=== PATIENT | male | born 1960 | race Caucasian/White ===

== ENCOUNTER 2019-01-17 14:57 | Inpatient (IN) | payer MEDICAID ==
[~2019-01-17] VITALS: Ht 174 cm; Wt 117.9 kg
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
--- NOTE | 2019-01-17 15:08 | NUR ---
DR. PIMENTEL AT BEDSIDE FOR EVAL.
[2019-01-17] MEDS ORDERED: NITROGLYCERIN PACKET 1 GM PACKET ONE (15:25)
--- NOTE | 2019-01-17 15:28 | NUR ---
DIRECTOR OF PUBLICATIONS AT BEDSIDE FOR CHEST XRAY.
[2019-01-17] MEDS ORDERED: NITROGLYCERIN PACKET 1 GM PACKET TD ONE (15:30)
[2019-01-17] MEDS ORDERED: ASPIRIN 325 MG TABLET PO ONE (15:30)
[2019-01-17 15:31] LABS: BASOPHILS # (AUTO) 0.1 /CMM (0.0-0.2); BASOPHILS % (AUTO) 1.3 % (0.0-2.0); EOSINOPHILS % (AUTO) 1.6 % (0.0-6.0); HEMATOCRIT 50 % (39-51); HEMOGLOBIN 15.2 g/dL (13.5-17.5); LYMPHOCYTES # (AUTO) 1.2 /CMM (0.8-4.8); LYMPHOCYTES % (AUTO) 17.1 % (20.0-44.0); MEAN CORPUSCULAR HGB CONC 31 g/dl (31.0-36.0); MEAN CORPUSCULAR VOLUME 92 fL (80-96); MONOCYTES # (AUTO) 0.6 /CMM (0.1-1.30); MONOCYTES % (AUTO) 8.6 % (2.0-12.0); NEUTROPHILS % (AUTO) 71.4 % (43.0-81.0); PLATELET COUNT (AUTO) 199 /CMM (150-450); RED BLOOD CELL COUNT(AUTO) 5.42 MIL/uL (4.5-6.0); WHITE BLOOD COUNT (AUTO) 6.9 K/uL (4.3-11.0)
[2019-01-17] MEDS ORDERED: ATOR40TA PO (15:39)
[2019-01-17] MEDS ORDERED: LISI-603 PO (15:39)
--- NOTE | 2019-01-17 15:41 | NUR ---
PSYCHOLOGY TECH/MED RECON INFORMATION OBTAINED FROM THE PATIENT. PER PATIENT HE DOES NOT TAKE ANY MEDICATION FOR DM.
--- NOTE | 2019-01-17 15:50 | NUR ---
CALLED NURSING SUP FOR BED.
[2019-01-17 16:03] LABS: ALANINE AMINOTRANSFERASE 22 U/L (12-78); ALBUMIN 3.3 g/dL (3.4-5.0); ALKALINE PHOSPHATASE 154 U/L (46-116); ASPARTATE AMINOTRANSFERASE 12 U/L (15-37); BILIRUBIN,DIRECT 0.2 mg/dL (0.0-0.2); CALCIUM, SERUM 8.5 mg/dL (8.5-10.1); CARBON DIOXIDE 21 mmol/L (21-32); CREATININE 2.5 mg/dL (0.6-1.3); POTASSIUM 5.4 mmol/L (3.5-5.1); TOTAL PROTEIN, SERUM 6.7 g/dL (6.4-8.2); UREA NITROGEN, BLOOD 34 mg/dL (7-18)
[2019-01-17 16:05] LABS: CHLORIDE 80 mmol/L (98-107); GLUCOSE 1217 mg/dL (74-106); SODIUM SERUM 113 mmol/L (136-145)
[2019-01-17] MEDS ORDERED: INSULIN REGULAR, HUMAN 100 UNIT/ML 10 ML VIAL ONE (16:13)
[2019-01-17] MEDS ORDERED: INSULIN REGULAR, HUMAN 100 UNIT in IV NS 0.9% 99 ML IV PRN ×4 (16:30→17:00)
[2019-01-17] MEDS ORDERED: INSULIN REGULAR, HUMAN 100 UNIT/ML 10 ML VIAL SQ ONE (16:30)
[2019-01-17] MEDS ORDERED: IV NS 0.9% 1,000 ML BAG IV ONE (16:30)
--- NOTE | 2019-01-17 16:30 | NUR ---
CHANGED TO ICU BED. CALLED NURSING SUP.
[2019-01-17] MEDS ORDERED: MAGNESIUM HYDROXIDE 30 ML UDC PO PRN (17:00)
[2019-01-17] MEDS ORDERED: ONDANSETRON HCL/PF 4 MG/2 ML VIAL IVP PRN (17:00)
[2019-01-17] MEDS ORDERED: HYDROCODONE/APAP 5/325MG 1 EACH TABLET PO PRN (17:00)
[2019-01-17] MEDS ORDERED: ZOLPIDEM TARTRATE 5 MG TABLET PO PRN (17:00)
[2019-01-17] MEDS ORDERED: Z GUARD REMEDY 2 OZ OINT TP PRN (17:00)
[2019-01-17] MEDS ORDERED: MAG HYDROX/AL HYDROX/SIMETH 30 ML UDC PO PRN (17:00)
[2019-01-17] MEDS ORDERED: ACETAMINOPHEN 325 MG TABLET PO PRN (17:00)
--- NOTE | 2019-01-17 17:08 | NUR ---
PATIENT SEEN BY DR. MAAN TORRES. REPORT GIVEN TO LAZ MARTIN FOR FLAQUITA.
[2019-01-17 17:13] LABS: PHOSPHORUS 3.6 mg/dL (2.5-4.9)
[2019-01-17 17:15] VITALS: BP 125/69
--- NOTE | 2019-01-17 17:15 | NUR ---
ICU/RN PT ADMITTED FROM ER.WITH VERY HIGH BLOOD SUGAR.PT IS ON INSULIN DRIP.PT IS AWAKE ,ALERT,ORIENTED.V/S STABLE,AFEBRILE.SR ON MONITOR.AMBULATING.USE URINAL .PERIFERAL IV.SKIN INTACT.NO PAIN REPORTED AT THIS TIME.CONTINUE MONITORING.
--- NOTE | 2019-01-17 17:21 | NUR ---
PATIENT TRANSFERRED TO ROOM 251-1 VIA ACLS PROTOCOL. PATIENT A/OX4, IN STABLE CONDITION. NO DISTRESS NOTED. NEEDS ATTENDED. ENDORSED TO BESSY RN FOR FLAQUITA. VITALS STABLE. INSULIN DRIP INFUSING AND ENDORSED.
--- NOTE | 2019-01-17 17:30 | NUR ---
ICU/RN CHECK BLOOD SUGAR ON GLUCOMETER.UNABLE TO READ TOO HIGH.LABORATORY NOTIFIED.PT REFUSE TO CHECK HIS BLOOD SUGAR BY HOUSE FURNISHINGS SUPERVISOR. MD NOTIFIED.INSULIN DRIP INCREASED.
[2019-01-17 18:00] VITALS: BP_SYST 130; BP_DIAS 66; BP_DIAS 69
--- NOTE | 2019-01-17 18:00 | NUR ---
ICU/RN ACCU CHECK DONE .BS IS STILL TOO HIGH.PT REFUSED LABORATORY DRAW.INSULIN DRIP INCREASED.MD AND CHARGE NURSE TONIFIED.
[2019-01-17] MEDS: IV NS 0.9% 1,000 ML IV PRN (18:07)
[2019-01-17 18:28] VITALS: BP 132/69
--- NOTE | 2019-01-17 18:52 | NUR ---
ICU/RN PT REMOVED HIS IV .REFUSED TO HAVE ANY MEDICATION.SCREAMING IN THE ROOM.RE FUSED TO PLACE NEW IV AT THIS TIME.CHARGE NURSE NOTIFIED. NOTIFIED. Addendum: 01/17/19 at 1946 by BESSY ROWLAND RN PAGED DR. NEWTON THAT PATIENT HAS BEEN REFUSING TO INTERVENTIONS. PULLED OUT IV THUS NO INSULIN OR FLUIDS RUNNING AT THIS TIME. ALSO CLARIFIED WHAT ALGORITHM SHOULD BE FOLLOWED IN ADMINISTERING INSULIN. AWAITING RESPONSE
[2019-01-17 19:03] VITALS: BP 125/69
--- NOTE | 2019-01-17 19:08 | NUR ---
ICU/RN PT PULL OUT HIS IV .REFUSED TO HAVE ANY MEDICATIONS .BLOOD SUGAR IS STILL TO HIGH.REFUSED LAB TO REDRAW THE BLOOD FOR BLOOD SUGAR DIAGNOSTIC.SCREAMING IN THE ROOM .CHARGE NURSE NOTIFIED. NOTIFIED.
[2019-01-17] MEDS: BLOOD SUGAR DIAGNOSTIC 1 EACH STRIP IN SCH ×5 (19:12→23:00)
--- NOTE | 2019-01-17 19:15 | NUR ---
RN NOTES PAGED HUMAN RESOURCE ASSISTANT, SPOKE TO ALBA PETERS PER THE LATER WILL COME AND TALK TO THE PATIENT HIMSELF
--- NOTE | 2019-01-17 19:20 | NUR ---
RN NOTES ALBA PETERS AT BEDSIDE, SPOKE TO THE PATIENT HIMSELF WITH ME AND VERONICA HERNANDEZ ON THE BEDSIDE. RISK AND CONSEQUENCES OF ACTIONS EXPLAINED. PATIENT STILL REFUSES MONITORING AND MEDICATION ADMINISTRATION
--- NOTE | 2019-01-17 19:30 | NUR ---
RN NOTES RECEIVED PATIENT AWAKE ALERT ORIENTED X 3 TARA WORLD HISTORY TEACHER AT BEDSIDE EXPLAINING AND EDUCATED PATIENT REGARDING HIS DIAGNOSIS AND POC AND POSSIBLE COMPLICATION IF HIS CONTINUING REFUSING CARE. WITNESSING BY ME AND BESSY RN PATIENT REMAINED COMPLIANT DESPITE ALL EXPLANATION COMING FROM TARA. ENCOURAGED AND OFFERED TO HAVE BLOOD SUGAR CHECK, IV INSERTION AND HYDRAULIC HAMMER OPERATOR BUT REMAINED NON COMPLAINT. REMINDED TO USED CALL LIGHT WHEN NEED ASSISTANCE KEPT THE PATIENT ON THE FLOOR FOR CLOSELY MONITORING. Addendum: 01/18/19 at 0722 by MARY MEAD RN NON COMPLIANT NOT COMPLIANT .
--- NOTE | 2019-01-17 20:30 | NUR ---
RN NOTES TRIED TO CHECKED BS, PT WAS SITTING ON THE EDGE OF THE BED "GO AWAY PLEASE, I JUST WANNA REST" PER PATIENT. RISK AND BENEFITS EXPLAINED PATIENT IS AWARE,.
--- NOTE | 2019-01-17 21:21 | NUR ---
RN NOTES PATIENT PRESSED CALL LIGHT AND ASKED FOR WARM BLANKET AND TO ADJUST ROOM TEMPERATURE. NEEDS ATTENDED AND OFFERED TELE MONITOR, VS MONITOR, AND BLOOD SUGAGR MONITOR REMAINED NON COMPLIANT PER PATIENT "I JUST WANNA REST"
--- NOTE | 2019-01-17 22:06 | NUR ---
RN NOTES PATIENT CONTINEU TO REFUSED BLOOD SUGAR CHECK, ASKED FOR FOOD EXPALINED REGARDING THE NPO AND STARTED TO GET AGITATED CALLED AND SPOKE WTIH LORRAINE DESIGN TECH WITH ORDER OK TO GIVE ICE CHIPS AND SUGAR FREE JELO OR SUGAR FREE PUDDING NOTED .
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
--- NOTE | 2019-01-18 00:14 | NUR ---
RN NOTES WENT TO PATIENT ROOM FOR BS PATIENT STILL REFUSED TO TAKE BS ,VS AND TO PLACED TELE MONITOR. PATIENT IS AOX3 AWARE ABOUT RISK.
[2019-01-18] MEDS: BLOOD SUGAR DIAGNOSTIC 1 EACH STRIP IN SCH ×12 (01:00→10:46)
--- NOTE | 2019-01-18 02:19 | NUR ---
RN NOTES PATIENT WOKE UP AND AMBULATE TO THE BATHROOM ASKED IF OK TO CHECKED VS AND BLOOD SUGAR, PATIENT REFUSED. AWARE ABOUT RISK AND BENEFITS.
--- NOTE | 2019-01-18 02:24 | NUR ---
RN NOTES PATIENT PRESSED CALL LIGHT AND ASKED TO EMPTY HIS URINAL AND ASKED FOR SALTINE CRACKERS , EXPLAINED THAT PER TARA HE CAN ONLY GET ICE CHIPS AND SUGAR FREE JELO OR SUGAR FREE PUDDING, ESPECIALLY THAT HE DOESNT WANT TO CHECK HIS BLOOD SUGAR. PT STARTED TO GET MAD STATING "TELL HIM TO DRINK THAT URINE" AND SCREAMED ON THE ROOM. PATIENT MADE AWARE THAT HE IS IN THE HOSPITAL AND HE SHOULDN'T SCREAMED BECAUSE OTHER PATIENT WAS SLEEPING.
--- NOTE | 2019-01-18 03:20 | NUR ---
RN NOTES PATIENT DOESN'T WANT TO BE BOTHER FOR ANYTHING UNLESS HE CALLED . PATIENT IS LAYING DOWN ON BED. REFUSED CARE
--- NOTE | 2019-01-18 04:10 | NUR ---
RN NOTES PATIENT HAD EPISODE OF NAUSEA, SPITTING OUT ON THE FLOOR. DOESN'T WANT TO BE BOTHER FOR ANY CARE, WANTS TO EAT CRACKERS AND ASKING ALL STAFF THAT WENT TO HIS ROOM. REMINDED ABOUT HIS CONDITION AND EXPLAINED RISK AND BENEFITS BUT PATIENT STARTED TO GET UPSET EVERYTIME YOU EXPLAINED HIS SITUATION AND PLAN OF CARE. REFUSED BLOOD DRAWN, REFUSED BLOOD SUGAR CHECK, REFUSED VS MONITOR, REFUSED DESKTOP PUBLISHING SPECIALIST, REFUSED IV LINE. REFUSED MEDS.
--- NOTE | 2019-01-18 05:11 | NUR ---
RN NOTES PATIENT ASLEEP AT THIS TIME. PER PATIENT HE JUST WANT TO REST.
--- NOTE | 2019-01-18 06:03 | NUR ---
RN NOTES PATIENT ASLEEP AT THIS TIME, PER PATIENT HE DOESN'T WANT TO BE BOTHER FOR ANY CARE, INCLUDING BLOOD SUGAR CHECK, STATED THAT HE JUST WANT TO REST. PATIENT SLEEPING WELL NO APPARENT RESPIRATORY DISTRESS. NO SIGNIFICANT CHANGES NOTED.
--- NOTE | 2019-01-18 06:54 | NUR ---
ASSET PROTECTION OFFICER NOTES PATIENT NOTED TO BE GAGGING/WRETCHING. UPON ASSESSMENT BY RN, PATIENT IMMEDIATELY STOPPED STAFF AT THE DOOR, STATING "IM DYING. LEAVE ME ALONE." PATIENT NOTED TO BECOME ANGRY, STARTING TO SCREAM AT RN. PATIENT'S WISHES OBSERVED, RN LEFT ROOM.
--- NOTE | 2019-01-18 07:10 | NUR ---
SPIRAL TUBE WINDER OPENING NOTES PT IS SLEEPING ON BED,TOO SEDATED.ON ROOM AIR,NO SOB AND ACUTE DISTRESS NOTED.REFUSED ALL MEDICAL TREATMENT.CONTINUE TO MONITOR THE PT CLOSELY.
--- NOTE | 2019-01-18 07:15 | NUR ---
RN NOTES REFUSED BLOOD SUGAR CHECK STATED "LEAVE ME ALONE", "IM DYING". CONTINUE TO REFUSED ALL POC. WILL ENDORSED CONTINUITY OF CARE TO AM NURSE.
[2019-01-18] MEDS: IV NS 0.9% 1,000 ML IV PRN (09:29)
--- NOTE | 2019-01-18 10:30 | NUR ---
BLANCHARD GRINDER OPERATOR NOTES PT IS AGITATED AND REFUSED TO TAKE ALL THE MEDICAL CARE,WALK TO THE CORRIDOR AND SCREAMING TO US,SAYING 'I AM STARVING AND I WANT FOOD NOW".HE IS NOT OBEY THE COMMANDS AND STILL SCREAMING OUT.CODE RACHID INITIATED.
--- NOTE | 2019-01-18 10:35 | NUR ---
SECURITIES CONSULTANT NOTES CODE RASHID TEAM IS HERE AND PCP RN AMAN RODRIGUEZ AT BEDSIDE. EXPLAINED THE IMPORTANCE OF INSULIN DRIP AND ALL MEDICAL CARE AND TREATMENT.STILL PT IS TELLING HE WANTS TO EAT NOW. ORDERED INSULIN LANTUS 20UNIT SQ STAT AND GIVE CCHO DIET AFTER AND THEN START THE IV INSULIN DRIP.NEW ORDERS NOTED AND CARRIED OUT.
--- NOTE | 2019-01-18 10:40 | NUR ---
VIDEO EDITOR NOTES STILL,PT REFUSED TO GET INSULIN LANTUS AND EATING NOW.HE IS TELLING"YOU NURSE ARE GIVING ME THE SODIUM CHLORIDE IV,AND ITS TOXIC TO ME.I DONT WANT TO TAKE ANYTHING AND I DONT TRUST YOU".WE EXPLAINED THE RISK AND BENEFITS OF INSULIN X3,STILL REFUSED.HE IS OK TO GO AGAINST THE MEDICAL ADVICE.
[2019-01-18] MEDS ORDERED: INSULIN GLARGINE, 100 UNIT/ML CARTRIDGE SQ STA (10:41)
--- NOTE | 2019-01-18 11:00 | NUR ---
TALENT DEVELOPMENT MANAGERINSPECTOR MOTOR VEHICLES NOTES PT LEFT AGAINST THE MEDICAL ADVICE,REFUSED TO SIGN THE CONSENT.FACTORY ENGINEER IS AT BEDSIDE.
--- NOTE | 2019-01-18 11:11 | NUR ---
TWISTER TENDER PT REFUSED ALL FURTHER MEDS AND CARE. REFUSED TO SIGN AMA FORM. LEFT AMBULATING OUT OF THE UNIT ESCORTED BY SECURITY TO THE EXIT.
--- NOTE | 2019-01-18 11:29 | NUR ---
Social service consult was requested for the pt. However, pt. was non-compliant with care and left the hospital against medical advice.
== END 2019-01-18 11:17 | disposition left against medical advice (07) | DRG 420 ==
LOC: ER 15:00 → ICU 16:52
DX: E11.00 Type 2 diabetes mellitus with hyperosmolarity without nonketotic hyperglycemic-hyperosmolar coma (NKHHC) (principal); N17.9 Acute kidney failure, unspecified; E11.22 Type 2 diabetes mellitus with diabetic chronic kidney disease; I12.9 Hypertensive chronic kidney disease with stage 1 through stage 4 chronic kidney disease, or unspecified chronic kidney disease; E87.5 Hyperkalemia; E78.5 Hyperlipidemia, unspecified; F17.210 Nicotine dependence, cigarettes, uncomplicated; Z91.19 Patient's noncompliance with other medical treatment and regimen; Z79.4 Long term (current) use of insulin; I25.2 Old myocardial infarction; Z79.899 Other long term (current) drug therapy; E66.9 Obesity, unspecified; I25.10 Atherosclerotic heart disease of native coronary artery without angina pectoris; E11.65 Type 2 diabetes mellitus with hyperglycemia; N18.9 Chronic kidney disease, unspecified; T38.3X6A Underdosing of insulin and oral hypoglycemic [antidiabetic] drugs, initial encounter; Y92.9 Unspecified place or not applicable
CPT/HCPCS: 36415; 71045-TC; 80048-TC; 80076-TC; 82962-TC; 83735-TC; 84100-TC; 84484-TC; 85025-TC; 85730-TC; 87081-TC; A4216; G0378; J1815; J7030